=== PATIENT | female | born 1990 | race Caucasian/White ===

== ENCOUNTER → 2016-05-06 | Outpatient (CLI) | payer OTHER ==
[~2016-05-06] MED LIST: ETONMIS VAGRING
--- NOTE | 2016-05-06 08:26 | DIAGNOSTIC IMAGING REPORT ---
THYROID ULTRASOUND CLINICAL HISTORY: Right thyroid nodule. COMPARISON STUDY: None available at time of interpretation. TECHNIQUE: Sonography of the thyroid gland was performed. FINDINGS: The right thyroid lobe measures 5.5 x 1.4 x 1.6 cm and the left lobe measures 4.4 x 1.5 x 1.5 cm. Note is made of a 0.3 x 0.3 x 0.4 cm hypoechoic nodule within the lower pole of the right lobe. No additional thyroid nodules are present. IMPRESSION: 1. 4 mm hypoechoic right lobe nodule. This does not meet criteria for biopsy. Although indeterminate, this is likely benign. 2. No additional thyroid nodules identified. Electronically signed by: Darvin Hughes M.D. 05/06/2016 8:24 AM Dictated Date/Time: 05/06/2016 8:20 AM
== END | disposition home or self-care (01) ==
LOC: C.ULTRBC 07:44
PROVIDERS: ATTEND Family Medicine
DX: E04.1 Nontoxic single thyroid nodule (principal)

== ENCOUNTER → 2016-10-29 | Outpatient (CLI) | payer OTHER ==
--- NOTE | 2016-10-29 08:56 | DIAGNOSTIC IMAGING REPORT ---
SOFT TISS HEAD/NECK-THYROID HISTORY: 26-year-old female presents because of palpable thyroid nodule. Family history of thyroid cancer. COMPARISON: Thyroid ultrasound 05/06/2016. TECHNIQUE: Multiple real time sonographic images of the thyroid were obtained accessing lopes scale appearance and color doppler flow. FINDINGS: MEASUREMENTS: Right lobe: 5.1 x 1.4 x 1.4 cm Left lobe: 4.4 x 1.2 x 1.4 cm Isthmus: 0.2 cm PARENCHYMA: The thyroid parenchymal echotexture is homogeneous. NODULES: Ovoid circumscribed slightly hypoechoic nodule of the mid right thyroid is again seen, 0.4 x 0.2 x 0.3 cm without definite internal vascularity, previously measuring 0.4 x 0.3 x 0.3 cm on study dated 05/06/2016. No additional discrete nodules are appreciated. IMPRESSION: 1. Stable 0.4 cm hypoechoic mid right thyroid nodule. Again, this does not meet criteria for biopsy. 2. Otherwise homogeneous thyroid parenchyma without suspicious appearing nodule. The above report was generated using voice recognition software. It may contain grammatical, syntax or spelling errors. Electronically signed by: Jonah Snider M.D. 10/29/2016 8:55 AM Dictated Date/Time: 10/29/2016 8:51 AM
== END | disposition home or self-care (01) ==
LOC: C.ULTR 08:27
PROVIDERS: ATTEND Physician Assistant
DX: E04.1 Nontoxic single thyroid nodule (principal); Z80.8 Family history of malignant neoplasm of other organs or systems

== ENCOUNTER 2017-02-14 02:28 | Emergency (ER) | payer OTHER ==
[~2017-02-14] VITALS: Ht 177.8 cm; Wt 89.7 kg
[2017-02-14 02:36] VITALS: TEMP 36.9; Ht 177.8 cm; Wt 89.7 kg
[2017-02-14] MEDS ORDERED: LIDOCAINE/EPINEPH/TETRACAINE 1 EA SYR EXT STA (03:14)
[2017-02-14] MEDS ORDERED: AMOXICIL/CLAVU 875MG HOME PACK PO ONE (03:15)
[2017-02-14] MEDS ORDERED: LORAZEPAM 1 MG TAB SL STA (03:36)
[2017-02-14] MEDS ORDERED: LIDO/EPINEPHRINE/SOD BICARB 20 ML VIAL INFIL ONE (04:13)
[2017-02-14] MEDS ORDERED: LIDOCAINE/EPINEPHRINE 1% 20 ML VIAL INFIL ONE (04:15)
[2017-02-14] MEDS ORDERED: AMOX875T PO (04:32)
--- NOTE | 2017-02-14 04:49 | EMERGENCY ROOM VISIT NOTE ---
ED Visit Note First contact with patient: 02:57 CHIEF COMPLAINT: Animal bite HISTORY OF PRESENT ILLNESS: This 26 yo patient presents to the emergency department with family after they sustained a dog bite to the face. The patient states she was petting the dog and the bar and it bit her. The patient reports that the animal's immunizations are up-to-date. The patient complains of throbbing 4/10 pain at the site of the injury. Pain is worse with movement. Tetanus status is up to date. Patient is requesting plastic surgery. Patient denies dental pain, eye pain, headache, fevers, chest pain, dyspnea or any other medical complaints. REVIEW OF SYSTEMS: A 6 system review of systems was completed with positives and pertinent negatives listed in the HPI. ALLERGIES: None MEDICATIONS: None PMH: None PHYSICAL EXAM: Vital Signs reviewed, see Nurse's notes, vital signs stable. GENERAL: Anxious-appearing female tearful, awake, alert, well appearing, no acute distress. Non toxic in appearance. MUSCULOSKELETAL: Examination of the face, left upper lip reveals a puncture laceration bite type of wound. 3 puncture lacerations: #1 1 cm that is gaping and through and through the bucca mucosa above the vermilion border, #2 5 mm there is gaping and appears clean above the vermilion border #3 5 mm and appears clean to the upper lip area above the vermilion border. There is minimal swelling on inspection. Palpation of the face reveals no tenderness No significant crepitus or warmth noted. No joint space, tendon, or vascular involvement. Skin: No signs of infection HEAD: Normocephalic atraumatic. EARS: External auditory canals clear, tympanic membranes pearly lopes without erythema or effusion bilaterally. EYES: Pupils equal round and reactive to light and accommodation. Conjunctivae without injection, sclerae without icterus. Extraocular movements intact. NOSE: Patent, turbinates without inflammation or discharge. No sinus tenderness. MOUTH: Mucous membranes moist. Pharynx without erythema or exudate. Uvula midline. Airway patent. Tongue does not deviate. The upper lip bite is through and through to the bucca mucosa of the upper lip. Dental exam: No loose or chipped teeth NECK: Supple without nuchal rigidity. No lymphadenopathy. No thyromegaly. Cervical spine is nontender. No JVD. NEURO: No sensory or motor deficits noted over all dermatomes and myotomes tested. EMERGENCY DEPARTMENT COURSE AND DECISION MAKING: I examined the patient. The patient presented with an isolated bite wound as described as above. By the history, there is no concern for rabies exposure. No signs of infection on examination. ER Treatment: Department of Health paperwork completed. 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 Patient was informed of this. Patient felt comfortable with me doing the laceration repairs. Location: upper lip, above vermilion border Total length: 1cm Complexity: simple Verbal consent was obtained after the risks and benefits were explained, including but not limited to bleeding, scarring, infection, pain, and bone/joint /nerve damage. At this time, the risks of the procedure are less than the risks of NOT performing the procedure. A time out was taken and the correct patient and site identified. The skin was prepped with betadine. The target area was anesthetized with LET and 1 ml of 1% lidocaine with epinephrine. Copious irrigation was performed using NSS. The skin was re-prepped with betadine and a sterile field set. The wound was explored for foreign bodies and none found. Examination revealed no injury to deep structures such as tendons, bone, or significant blood vessels. Debridement was not performed. The wound edges were approximated using 3, 6-0 simple interrupted nylon sutures. Hemostasis and excellent approximation was achieved. Antibacterial ointment and a sterile dressing applied. Detailed wound care instructions and signs and symptoms of infection reviewed with the pt. No complications and the patient tolerated the procedure well. Location: upper lip, above vermilion border Total length: 5mm Complexity: simple Verbal consent was obtained after the risks and benefits were explained, including but not limited to bleeding, scarring, infection, pain, and bone/joint /nerve damage. At this time, the risks of the procedure are less than the risks of NOT performing the procedure. A time out was taken and the correct patient and site identified. The skin was prepped with betadine. The target area was anesthetized with 1 ml of 1% lidocaine with epinephrine. Copious irrigation was performed using NSS. The skin was re-prepped with betadine and a sterile field set. The wound was explored for foreign bodies and none found. Examination revealed no injury to deep structures such as tendons, bone, or significant blood vessels. Debridement was not performed. The wound edges were approximated using 1, 6-0 simple interrupted nylon sutures. Hemostasis and excellent approximation was achieved. Antibacterial ointment and a sterile dressing applied. Detailed wound care instructions and signs and symptoms of infection reviewed with the pt. No complications and the patient tolerated the procedure well. Location: upper lip, above vermilion border Total length: 5mm Complexity: simple Verbal consent was obtained after the risks and benefits were explained, including but not limited to bleeding, scarring, infection, pain, and bone/joint /nerve damage. At this time, the risks of the procedure are less than the risks of NOT performing the procedure. A time out was taken and the correct patient and site identified. The skin was prepped with betadine. The target area was anesthetized with LET and 1 ml of 1% lidocaine with epinephrine. Copious irrigation was performed using NSS. The skin was re-prepped with betadine and a sterile field set. The wound was explored for foreign bodies and none found. Examination revealed no injury to deep structures such as tendons, bone, or significant blood vessels. Debridement was not performed. The wound edges were approximated using 1, 6-0 simple interrupted nylon sutures. Hemostasis and excellent approximation was achieved. Antibacterial ointment and a sterile dressing applied. Detailed wound care instructions and signs and symptoms of infection reviewed with the pt. No complications and the patient tolerated the procedure well. Antibiotic prophylaxis is indicated. The area was cleansed with Betadine and sterile saline and dressed with bacitracin and a bandage. Patient was given information on plastic surgery. She is advised to call Thursday morning for follow-up. She was counseled on signs and symptoms of infection and verbalized understanding of this. She is counseled on laceration care. Discharge instructions reviewed. Discharged in stable condition. DIAGNOSIS: #1 dog bite to face #2 facial lacerations #3 of the mouth wound Case reviewed with my attending who also saw this patient. DISCHARGED INSTRUCTIONS: As below Current/Historical Medications Scheduled Amoxicillin & Pot Clavulanate (Augmentin 875-125 mg), 1 TAB PO BID Etonogestrel/Ethinyl Estradiol (Nuvaring), 1 EA VAGRING MONTHLY Allergies Coded Allergies: No Known Allergies (Unverified , 02/19/10) Vital Signs Date Time Temp Pulse Resp B/P (MAP) Pulse Ox O2 Delivery O2 Flow Rate FiO2 02/14/17 02:36 36.9 108 16 134/89 99 Room Air Medications Administered Medications (Trade) Dose Ordered Sig/Ainsley Route Start Time Stop Time Status Last Admin Dose Admin Tetracaine/ Epinephrine/ Lidocaine (L.e.t. Gel 4%/ 1:100/0.5%) 1 ea NOW STAT EXT 02/14/17 03:14 02/14/17 03:15 DC 02/14/17 03:35 1 EA Amoxicillin/ Clavulanate Potassium (Augmentin 875MG Home Pack) 1 homepack UD ONCE PO 02/14/17 03:15 02/14/17 03:16 DC 02/14/17 03:36 1 HOMEPACK Lorazepam (Ativan Tab) 1 mg NOW STAT SL 02/14/17 03:36 02/14/17 03:37 DC 02/14/17 03:50 1 MG Departure Information Impression Primary Impression: Dog bite of face Additional Impressions: facial lacerations mouth wound Dispostion Home / Self-Care Condition GOOD Prescriptions Amoxicillin & Pot Clavulanate (Augmentin 875-125 mg) 1 Tab Tab 1 TAB PO BID for 9 Days, #18 TAB Prov: Milla Pizarro PA-C 02/14/17 Referrals Marylou Vu MD Forms HOME CARE DOCUMENTATION FORM, IMPORTANT VISIT INFORMATION Patient Instructions My [facility], ED Bite Dog, ED Laceration All Additional Instructions Keep wound clean and dry. Do not allow any crusting or dried blood to accumulate on sutures. If this occurs, use a 1:1 solution of hydrogen peroxide/ water on a Q-tip to clean the wound. Use an antibiotic ointment for 3-4 days, then let wound dry. Suture removal in 5-7 days. Return sooner for any signs of infection (increasing redness, swelling, drainage). Ice and elevate for swelling and pain. Keep covered when in sun until sutures removed then SPF 50 or higher for one year. Vitamin E oil if desired two weeks after suture removal for reduction of scar Amoxicillin Clavulanate (Augmentin) 875mg: Take one pill twice daily for 10 days. All antibiotics can cause diarrhea. If this occurs and you feel worse or it does not resolve in 1-2 days follow up with your doctor or return to the Emergency Department as this could be signs of serious underlying problems. Any medication can cause an allergic reaction, stop the pills immediately and return to the ER for rash, hives, breathing difficulties, or swelling. Ibuprofen(Motrin, Advil) may be used for fever or pain. Use 600mg every six hours as needed. Take with food. Avoid using more than 2400mg in a 24 hour period. Do not use 2400mg per day for more than three consecutive days without physician direction. Prolonged inappropriate use can lead to stomach upset or ulcers. (AND/OR) Acetaminophen(Tylenol) may be used for fever or pain. Use 1000mg every six hours as needed. Avoid using more than 3000mg in a 24 hour period. Warm saltwater gargles 3 times a day for your mouth injury. Continue current medications. Return to the ER for severe pain, fevers, spreading redness, or any worsening of your condition. Follow up with plastics within 2-3 days for a recheck of the current condition. Call Thursday for an appointment. Problem Qualifiers
[2017-02-14 05:02] VITALS: BP 119/85; PULSE 101; O2SAT 95
--- NOTE | 2017-02-14 06:58 | EMERGENCY ROOM VISIT NOTE ---
ED Visit Note First contact with patient: 02:57 I have personally evaluated and examined this patient. I agree with assessment and plan of Emely Pizarro PA-C. 26 yr old with dog bite to left upper lip with through-through. Sutured well by Emely Pizarro. Abx. Follow up with Plastics.
== END 2017-02-14 05:03 | disposition home or self-care (01) ==
LOC: C.EDB 02:29
DX: S00.87XA Other superficial bite of other part of head, initial encounter (principal); W54.0XXA Bitten by dog, initial encounter

== ENCOUNTER → 2017-04-10 | Outpatient (CLI) | payer OTHER ==
[2017-04-14 07:51] LABS: CHLAMYDIA TRACH RNA*** NOT DETECTED (NOT DETECTED); GC (NEIS GONORRHOEAE)RNA** NOT DETECTED (NOT DETECTED)
== END | disposition home or self-care (01) ==
LOC: C.LABSPEC 16:29
PROVIDERS: ATTEND Physician Assistant
DX: Z01.419 Encounter for gynecological examination (general) (routine) without abnormal findings (principal)

== ENCOUNTER → 2017-04-10 | Outpatient (CLI) | payer OTHER | END | disposition home or self-care (01) | LOC: C.PAPS 17:50 | PROVIDERS: ATTEND Physician Assistant | DX: Z01.419 Encounter for gynecological examination (general) (routine) without abnormal findings (principal) ==

== ENCOUNTER → 2017-09-01 | Outpatient (CLI) | payer OTHER ==
[~2017-09-01] MED LIST changes: +AMPH30CA3 PO; +BUPR150T7 PO; +GABA-112 PO; +IUD'IUD; +TRAM-10 PO
--- NOTE | 2017-09-01 10:57 | DIAGNOSTIC IMAGING REPORT ---
LUMBAR SPINE 5 VIEWS CLINICAL HISTORY: Low back pain. FINDINGS: 5 views of the lumbar spine are obtained. No prior studies are available for comparison at the time of dictation. The skeletal structures are well mineralized. There is no radiographic evidence of fracture or malalignment. Vertebral body height and alignment are maintained. Minimal lumbar levocurvature may be positional. The transverse and spinous processes are intact. There is no evidence of spondylolysis. The intervertebral disc spaces are well-maintained. The visualized bony pelvis appears intact. There is a nonobstructed abdominal bowel gas pattern. There is moderate colonic fecal retention. IMPRESSION: Unremarkable radiographic evaluation of the lumbosacral spine. Electronically signed by: Luca Oconnell M.D. 09/01/2017 10:56 AM Dictated Date/Time: 09/01/2017 10:53 AM
== END | disposition home or self-care (01) ==
LOC: C.RDSM 10:35
PROVIDERS: ATTEND Family Medicine
DX: M54.16 Radiculopathy, lumbar region (principal)

== ENCOUNTER → 2017-09-03 | Outpatient (CLI) | payer OTHER ==
[~2017-09-03] MED LIST changes: -AMPH30CA3 PO; -BUPR150T7 PO; -GABA-112 PO; -IUD'IUD; -TRAM-10 PO
--- NOTE | 2017-09-03 21:43 | DIAGNOSTIC IMAGING REPORT ---
MRI LUMBAR SPINE WITHOUT IV CONTRAST CLINICAL HISTORY: Low back pain with right lower extremity radiculopathy. COMPARISON STUDY: Radiographs of lumbar spine dated 09/01/2017. TECHNIQUE: MRI of lumbar spine is performed utilizing various T1 and T2 weighted sequences in the axial and sagittal planes. IV contrast was not measured for this examination. FINDINGS: Lumbar spine: Vertebral body height and alignment are maintained throughout the lumbar spine. Mild chronic degenerative endplate changes seen at L5-S1. Normal marrow signal intensity is otherwise preserved of the visualized bony structures. There is straightening of the lumbar lordosis. The transverse and spinous processes appear intact. There is no evidence of spondylolysis. Intervertebral discs: Degenerative disc desiccation is seen at L4-L5 and L5-S1 with mild loss of height at L5-S1. The remaining discs are normal in height and signal intensity. Spinal cord: The visualized spinal cord is normal in morphology and signal intensity. The conus medullary terminates at the level of L1. The nerve roots of the cauda equina are normal in morphology. L1-L2: Unremarkable. L2-L3: Unremarkable. L3-L4: Unremarkable. L4-L5: Unremarkable. L5-S1: There is a large posterior disc herniation eccentric to the right. An inferiorly extruded and possibly sequestered fragment measures up to 13 mm. This is best seen on sagittal image #7. There is also a leftward component of the herniation which measures up to 1.2 cm. There is severe right-sided subarticular stenosis, with impingement on the exiting right L5 and transient right-sided sacral nerve roots. The left-sided disc bulge impinges on the left-sided sacral nerve roots. The neural foramina are patent. There is only minimal compromise of the central canal at this level. Sacrum: The visualized sacrum is normal in morphology and signal intensity. Soft tissues: The paraspinous soft tissues are within normal limits. The visualized retroperitoneal structures are grossly unremarkable but incompletely evaluated. IMPRESSION: 1. There is a large disc herniation eccentric to the right at L5-S1 with an inferiorly extruded and possibly sequestered fragment. This impinges on the exiting right L5 and transiting right-sided sacral nerve roots. 2. There is also a leftward component of the herniation at L5-S1 which impinges on the transiting left-sided sacral nerve roots. 3. No significant degenerative change is seen at the remaining lumbar levels. Dictated: 09/03/2017 9:07 PM Transcribed: 09/03/2017 9:43 PM [email or web address] Electronically signed by: Luca Oconnell M.D. 09/03/2017 9:48 PM Dictated Date/Time: 09/03/2017 9:07 PM
== END | disposition home or self-care (01) ==
LOC: C.MRI 20:15
PROVIDERS: ATTEND Family Medicine
DX: M51.17 Intervertebral disc disorders with radiculopathy, lumbosacral region (principal)